=== PATIENT | male | born 1985 ===

== ENCOUNTER 2018-01-15 22:12 | Emergency (ER) | payer SELFPAY ==
--- NOTE | 2018-01-15 23:16 | ED PDOC ---
Arrival/HPI - General Chief Complaint: Alcohol Ingestion Time Seen by Provider: 01/15/18 22:43 Historian: Patient - History of Present Illness Narrative History of Present Illness (Text): 01/15/18 23:14 A 33 year old male, with no significant past medical history, who is Irish- speaking and is translated by coworker Mary Lou, is brought in by EMS into the emergency department for public intoxication. Patient admits to drinking 6 beers. Denies any fall/trauma. Patient is not experiencing any withdrawal symptoms at this time. No nausea, vomiting, diarrhea. Limited HPI and ROS due to intoxication. No PMD Past Medical History - Provider Review Nursing Documentation Reviewed: Yes - Psychiatric Hx Substance Use: No Family/Social History - Physician Review Nursing Documentation Reviewed: Yes Family/Social History: No Known Family HX Smoking Status: Light Smoker < 10 Cigarettes Daily Hx Alcohol Use: Yes Frequency of alcohol use: Daily Hx Substance Use: No Allergies/Home Meds Allergies/Adverse Reactions: Allergies No Known Allergies Allergy (Verified 01/15/18 22:33) Home Medications: Home Meds Medication Instructions Recorded Confirmed No Known Home Med 01/15/18 01/15/18 Review of Systems - Review of Systems Systems not reviewed;Unavailable: Intoxicated Physical Exam Vital Signs Temp Pulse Resp BP Pulse Ox 01/15/18 22:50 97.9 F 89 19 155/88 H 100 Appearance: Positive for: Other (intoxicated) Pain Distress: None - Systems Exam Head: Present: Atraumatic, Normocephalic Pupils: Present: PERRL Extroacular Muscles: Present: EOMI Conjunctiva: Present: Normal Mouth: Present: Moist Mucous Membranes Neck: Present: Normal Range of Motion Respiratory/Chest: Present: Clear to Auscultation, Good Air Exchange. No: Respiratory Distress, Accessory Muscle Use Cardiovascular: Present: Regular Rate and Rhythm, Normal S1, S2. No: Murmurs Abdomen: No: Tenderness, Distention, Peritoneal Signs Back: Present: Normal Inspection Upper Extremity: Present: Normal Inspection. No: Cyanosis, Edema Lower Extremity: Present: Normal Inspection. No: Edema Neurological: Present: GCS=15, CN II-XII Intact, Speech Normal Skin: Present: Warm, Dry, Normal Color. No: Rashes Psychiatric: Present: Intoxicated Medical Decision Making ED Course and Treatment: 01/15/18 23:15 Impression: 33 year old male brought in for public intoxication. No acute findings on physical exam except patient is intoxicated. Plan: -- Reassess and disposition Progress Notes: 01/16/18 00:20 Patient awakened and reexamined with no tremulousness, tongue fasciculation or inability to ambulate. He is deemed clinical sober. Patient discharged home in stable condition. Patient has been encouraged to stop alcohol intake. He will be driven home by his . - Scribe Statement The provider has reviewed the documentation as recorded by the Mansoor Manzo Provider Scribe Attestation: All medical record entries made by the Scribe were at my direction and personally dictated by me. I have reviewed the chart and agree that the record accurately reflects my personal performance of the history, physical exam, medical decision making, and the department course for this patient. I have also personally directed, reviewed, and agree with the discharge instructions and disposition. Disposition/Present on Arrival - Present on Arrival Any Indicators Present on Arrival: No History of DVT/PE: No History of Uncontrolled Diabetes: No Urinary Catheter: No History of Decub. Ulcer: No History Surgical Site Infection Following: None - Disposition Have Diagnosis and Disposition been Completed?: Yes Diagnosis: Alcohol intoxication Disposition: HOME/ ROUTINE Disposition Time: 00:01 Patient Problems: Current Active Problems Problem Status Onset Alcohol intoxication Acute Condition: GOOD Discharge Instructions (ExitCare): Alcohol Abuse and Alcoholism (DC) Additional Instructions: KEVIN MORSE, thank you for letting us take care of you today. Your provider was Severo Leary and you were treated for ETOH. The emergency medical care you received today was directed at your acute symptoms. If you were prescribed any medication, please fill it and take as directed. It may take several days for your symptoms to resolve. Return to the Emergency Department if your symptoms worsen, do not improve, or if you have any other problems. Please contact your doctor or call one of the physicians/clinics you have been referred to that are listed on the Patient Visit Information form that is included in your discharge packet. Bring any paperwork you were given at discharge with you along with any medications you are taking to your follow up visit. Our treatment cannot replace ongoing medical care by a primary care provider outside of the emergency department. Thank you for allowing the [facility] team to be part of your care today. If you had an X-Ray or CT scan: A Radiologist will review the ED reading if any change in treatment is needed we will contact you. If you had a blood, urine, or wound culture: It will take several days for the results, if any change in treatment is needed we will contact you. If you had an STI test: It will take 48 hours for the results. Please call after 1 week if you have not heard back. Referrals: FAMILY PROVIDER,NO [Primary Care Provider] - Follow up with primary Chloe Acevedo MD [Medical Doctor] - Follow up with primary Forms: [employer] (Amharic)
[2018-01-16 00:19] VITALS: TEMP 97.9; O2SAT 100
[2018-01-16 02:55] VITALS: BP 135/82; PULSE 84; RESP 18
== END 2018-01-16 00:30 | disposition home or self-care (01) ==
LOC: ED 22:12
DX: F10.129 Alcohol abuse with intoxication, unspecified (principal); F17.210 Nicotine dependence, cigarettes, uncomplicated